=== PATIENT | male | born 1960 | race Caucasian/White ===

== ENCOUNTER 2016-07-20 05:28 | Day surgery (SDC) | payer MEDICAID ==
[2016-07-19 11:16] LABS: BASOPHILS 0.5 % (0.0-2.0); EOSINOPHILS 2.5 % (0-7); HEMATOCRIT 46.2 % (42.0-54.0); HEMOGLOBIN 15.7 g/dL (13.5-17.5); IMMATURE GRANULOCYTES 0.1 % (0-5); LYMPHOCYTES 31.1 % (15-50); MCH 31.7 pg (26.0-34.0); MCV 93.3 fL (80.0-100.0); MEAN PLATELET VOLUME 9.9 fL (7.4-10.4); MONOCYTES 7.1 % (2-11); NEUTROPHILS 58.7 % (40-80); PLATELET COUNT 184 10x3/uL (130-400); RBC 4.95 10x6/uL (4.20-6.10); RDW 12.8 % (11.5-14.5); WBC 7.6 10x3/uL (4.8-10.8)
[2016-07-19 11:21] LABS: CALC OSMOLALITY 271 mosm/kg (275-300); CALCIUM 9.3 mg/dL (8.5-10.1); CARBON DIOXIDE 32.5 mmol/L (21.0-32.0); CHLORIDE - SERUM 103 mmol/L (98-107); GLUCOSE 83 mg/dL (74-106); POTASSIUM - SERUM 4.5 mmol/L (3.5-5.1); SODIUM 137 mmol/L (136-145); UREA NITROGEN 10 mg/dL (7-18); eGFR NON AFRICAN AMERICAN 83 mL/min (90-120)
[~2016-07-20] VITALS: Ht 177.8 cm; Wt 79.8 kg
[~2016-07-20 05:28] MED LIST: ADVAIR 100/501 DISK INH; ASPIRIN EC81 M1 PO; BIOTIN PO; CATAPRES0.2 MG PO; KLONOPIN0.5 MG PO; LEXAPRO20 MG PO; LIPITOR80 MG PO; PLAVIX75 MG PO; PROAIR HFA8.5 GM INH; UREA TOPICAL; VITAMIN B-121000 MCG PO; VITAMIN C1000 MG PO; VITAMIN D31000 UNI2 PO; WELLBUTRIN SR150 MG PO
[2016-07-20 07:35] VITALS: BP 102/68; Ht 177.8 cm; Wt 79.8 kg
--- NOTE | 2016-07-20 08:02 | NUR ---
TONY LEE TO ROOM
[2016-07-20] MEDS ORDERED: HYDROCODONE-APA1 TAB PO (09:46)
--- NOTE | 2016-07-20 13:55 | NUR ---
1210-IV DISCONTINUED, CATHETER INTACT, COTTON BALL AND BANDAID APPLIED. ESCORTED VIA WHEELCHAIR TO PERSONAL CAR, LEFT WITH FRIEND DRIVING.
--- NOTE | 2016-07-25 10:09 | OP ---
PATIENT NAME: SANA BURNO MEDICAL RECORD: [id number] :62 LOCATION:D.OPS ADMISSION DATE: SURGEON: JOSE HASTINGS MD DATE OF OPERATION: 07/20/2016 PREOPERATIVE DIAGNOSES: 1. Umbilical hernia. 2. Hyperlipidemia. 3. Coronary artery disease. 4. Hypertension. 5. Obstructive sleep apnea. 6. Carotid artery stenosis. POSTOPERATIVE DIAGNOSES: 1. Umbilical hernia. 2. Hyperlipidemia. 3. Coronary artery disease. 4. Hypertension. 5. Obstructive sleep apnea. 6. Carotid artery stenosis. PROCEDURE: Umbilical hernia repair without mesh. SURGEON: Jose Hastings MD REPORT OF PROCEDURE: A semicircular incision was made on the inferior aspect of the umbilicus. Electrocautery was used to dissect through the subcutaneous tissues. We bluntly came around the umbilical stalk. The stalk was transected using electrocautery. We then dissected the hernia sac down to the fascial edges. The fascial defect was about 1.2 cm in greatest diameter. We freed up the undersurface of the fascia. The fascia was then closed transversely using interrupted 0 Prolenes times 5. There was good approximation of the tissue. The umbilicus was then tacked down to the fascia using interrupted 3-0 Vicryl. The subcutaneous tissues were reapproximated with interrupted 3-0 Vicryls and then infused with 10 mL of 0.25% Marcaine plain. The skin incision was closed with running subcutaneous 5-0 Monocryl and dressed appropriately. COMPLICATIONS: None. CONDITION: Stable. ANESTHESIA: General endotracheal and local. BLOOD LOSS: Minimal. TRANSINT:[id number] Voice Confirmation ID: [id number] DOCUMENT ID: [id number] OPERATIVE REPORT [id number] SANA BRUNO CHRISTIAN MD at 1009 CC: ROSELYN GONZALEZ DO and CARMELLA DA SILVA MD [id number] DICTATION DATE: 07/20/16 0950 STRUCTURAL BIOLOGIST: 07/20/16 1003 [facility] 07/20/[address] [id number]
== END 2016-07-20 12:10 | disposition home or self-care (01) ==
LOC: D.OPS 05:28 → D.PAN 09:00 → D.OPS 12:10
PROVIDERS: Surgery
DX: K42.9 Umbilical hernia without obstruction or gangrene (principal); E78.5 Hyperlipidemia, unspecified; I25.10 Atherosclerotic heart disease of native coronary artery without angina pectoris; I10 Essential (primary) hypertension; G47.33 Obstructive sleep apnea (adult) (pediatric); I65.29 Occlusion and stenosis of unspecified carotid artery

== ENCOUNTER → 2017-01-09 11:40 | Outpatient (CLI) | payer MEDICAID ==
[2016-07-20 07:35] VITALS: BMI 25.3
[~2017-01-09 11:40] MED LIST changes: +HYDROCODONE-APA1 TAB PO
== END | disposition home or self-care (01) ==
LOC: D.US 11:40
DX: I65.23 Occlusion and stenosis of bilateral carotid arteries (principal)

== ENCOUNTER → 2017-08-08 08:15 | Outpatient (CLI) | payer MEDICAID ==
[2016-07-20 07:35] VITALS: BMI 25.3
== END | disposition home or self-care (01) ==
LOC: D.MRI 08:15
DX: M25.512 Pain in left shoulder (principal)

== ENCOUNTER → 2017-08-10 10:17 | Outpatient (CLI) | payer MEDICAID ==
[2016-07-20 07:35] VITALS: BMI 25.3
== END | disposition home or self-care (01) ==
LOC: D.LABREF 10:17
DX: M19.012 Primary osteoarthritis, left shoulder (principal); Z11.8 Encounter for screening for other infectious and parasitic diseases

== ENCOUNTER 2017-08-28 05:45 | Inpatient (IN) | payer BC ==
[2017-08-27 10:12] LABS: BASOPHILS 0.3 % (0-2); EOSINOPHILS 2.8 % (0-7); HEMATOCRIT 45.3 % (42.0-54.0); HEMOGLOBIN 15.7 g/dL (13.5-17.5); IMMATURE GRANULOCYTES 0.1 % (0-5); LYMPHOCYTES 23.7 % (15-50); MCHC 34.7 g/dL (31.0-37.0); MCV 92.4 fL (80.0-100.0); MEAN PLATELET VOLUME 9.8 fL (7.4-10.4); MONOCYTES 6.2 % (2-11); NEUTROPHILS 66.9 % (40-80); PLATELET COUNT 177 10x3/uL (130-400); RDW 13.5 % (11.5-14.5)
[2017-08-27 10:20] LABS: APPEARANCE CLEAR (CLEAR); BILIRUBIN NEGATIVE (NEGATIVE); COLOR YELLOW (YELLOW); GLUCOSE NEGATIVE (NEGATIVE); INR 0.97 (0.85-1.17); KETONE NEGATIVE (NEGATIVE); NITRITE NEGATIVE (NEGATIVE); PROTEIN NEGATIVE (NEGATIVE); PROTIME 12.5 SECONDS (11.6-15.0); SPECIFIC GRAVITY 1.015 (1.005-1.020); UROBILINOGEN NORMAL (NORMAL)
[2017-08-27 10:21] LABS: APTT 29.7 SECONDS (22.8-39.4); CALC OSMOLALITY 276 mosm/kg (275-300); CALCIUM 8.7 mg/dL (8.5-10.1); CARBON DIOXIDE 25.8 mmol/L (21.0-32.0); CHLORIDE - SERUM 104 mmol/L (98-107); CREATININE - SERUM 0.9 mg/dL (0.6-1.3); GLUCOSE 104 mg/dL (74-106); POTASSIUM - SERUM 3.8 mmol/L (3.5-5.1); SODIUM 140 mmol/L (136-145); UREA NITROGEN 8 mg/dL (7-18); eGFR NON AFRICAN AMERICAN > 90 mL/min (90-120)
[~2017-08-28] VITALS: Ht 177.8 cm; Wt 76.8 kg
--- NOTE | ~2017-08-28 | OP ---
PATIENT NAME: SANA BRUNO MEDICAL RECORD: [id number] :62 LOCATION:D.MS [id number] ADMISSION DATE:08/28/17 SURGEON: MARIA ISABEL ALEXANDER DO DATE OF OPERATION: 08/28/2017 PROCEDURE PERFORMED: Left reverse total shoulder arthroplasty. PREOPERATIVE DIAGNOSIS: Left shoulder rotator cuff arthropathy. POSTOPERATIVE DIAGNOSIS: Left shoulder rotator cuff arthropathy. INDICATIONS: Mr. Bruno is a 57-year-old male who presented to my office a few months ago having an MRI demonstrating complete tear of his rotator cuff, the supraspinatus and infraspinatus. He had had repairs in the past and he had pain for quite some time and limited motion and strength. I had a discussion with him about this and so that on the MRI, it was retracted and looked like irreparable. However, we could try a superior capsular repair, would lock him down for some time or even attempt a reverse total shoulder arthroplasty. He would have a quick recovery. After hearing the risks and benefits of the procedure, he chose to do the reverse total shoulder arthroplasty. The risks of the reverse total shoulder arthroplasty include damage to axillary nerve, loss of function of the left arm, infection, bleeding, need for further surgery, damage to vessels and nerves. After understanding this, he consented to procedure. SURGEON: Maria Isabel Alexander DO COMPLICATIONS: None. BLOOD LOSS: Approximately 100 mL. DESCRIPTION OF PROCEDURE: The patient was given a block in the preoperative area by anesthesia and taken to the operative suite, given 900 mg clindamycin preoperatively. After this, he was laid in supine position, put over on the table and positioned on the beach chair table and given general anesthetic, intubated, and sedated and then the left arm, left shoulder was prepped and draped in sterile fashion. After this was done, a timeout was performed. Everyone was in agreeance with the correct side, site, and the patient and procedure. The incision was then marked down the deltopectoral interval and then the shoulder was covered in [place]. Incision then commenced in the marked location and careful dissection was made down with the Bovie after skin incision was made with a 10 blade coagulating all bleeders. The cephalic vein was taken medially with at one point damaged during the case and was tied off with a 2-0 silk suture. After this was done, the bicep tendon was found as well as the proximal part of the pectoralis major. Proximal part of the pectoralis major was released 4 cm and the biceps tendon was tenodesed there to it. The bicipital groove was then opened up as well as the rotator interval what was left of the supraspinatus tendon without much, the subscap was there and was peeled off with the Bovie after being tagged. Humeral head was then exposed and the intramedullary guide was used to cut in the humerus was made. After the cut was made, the humerus was retracted posteriorly and the glenoid was exposed and cleaned up around the glenoid. All the labrum was removed and the centering pin was put into place. Then, the reamers were used and the baseplate was measured to be 30. Using a 30 screw on the baseplate, a 25 baseplate was used [facility] shoulder and a screw in the 10 o'clock and 5 o'clock positions were put into OPERATIVE REPORT [id number] SANA BRUNO place locking screws in each spot good bite with the center screw as only 2 peripheral screws were put in and then trialing inferior offset glenosphere, this is what we needed for adequate coverage of the glenoid and then the implant was put in place, impacted and locked down getting a good bite. After this was done, the humerus was exposed and broached up to a 5, trialing the implant and seem to be very good position and adequate tautness of the conjoint tendon as well as the deltoid fibers of the deltoid muscle. Once this configuration was done, it was dislocated and removed and the shoulder was irrigated thoroughly and then the final implant was put into place and the shoulder was reduced. Forward flexion was over 100 degrees, abduction over 100 degrees. Internal and external rotation were also adequate and good motion and appropriate tautness of the conjoint tendon as well as the deltoid fibers. Irrigation was then done one final time and the wrist was put in the wound. A drain was put in and taken out superiorly of the deltoid and then the wound was closed first with #1 Vicryl closing the deltopectoral interval loosely and then the skin, 2-0 Vicryl was used in an inverted interrupted pattern and then 4-0 Monocryl was run on the skin in a subcuticular fashion and then Prineo Dermabond was used on the skin itself for closure. Adaptic, 4 x 4s, ABD, and then Medipore tape was used on the incision site. The patient was awakened and taken to recovery in stable condition. COMPLICATIONS: None. TRANSINT:[id number] Voice Confirmation ID: [id number] DOCUMENT ID: [id number] MARIA ISABEL ALEXANDER DO at 0958 CC: [id number] DICTATION DATE: 08/28/17 1543 HISTOPATH TECH: 08/28/17 2042 ADM IN [facility] [address] [place] [address]
[2017-08-28 12:02] VITALS: BP 127/78; BMI 23.7
[2017-08-28 16:55] VITALS: BP 157/89
[2017-08-28 17:03] VITALS: BP 157/89; Ht 177.8 cm; Wt 76.8 kg
[2017-08-28 17:42] VITALS: BP 115/66
[2017-08-28 22:11] VITALS: BP 114/74
[2017-08-29 01:48] VITALS: BP 111/65
[2017-08-29 04:06] LABS: HEMATOCRIT 41.2 % (42.0-54.0); HEMOGLOBIN 14.2 g/dL (13.5-17.5); MCH 31.9 pg (26.0-34.0); MCHC 34.5 g/dL (31.0-37.0); MCV 92.6 fL (80.0-100.0); MEAN PLATELET VOLUME 10.3 fL (7.4-10.4); RBC 4.45 10x6/uL (4.20-6.10); RDW 13.4 % (11.5-14.5)
[2017-08-29 04:17] LABS: WBC 10.3 10x3/uL (4.8-10.8)
[2017-08-29 05:29] VITALS: BP 101/54
[2017-08-29 08:34] VITALS: BP 108/80
[2017-08-29 12:08] VITALS: BP 124/78
[2017-08-29] MEDS ORDERED: OXYCODONE HCL5 MG PO (13:20)
== END 2017-08-29 15:22 | disposition home or self-care (01) | DRG 483 ==
LOC: D.MS 05:45 → D.SDCHOLD 05:45 → D.MS 16:38
PROVIDERS: Orthopaedic Surgery
PROC: 0RRK00Z Replacement of Left Shoulder Joint with Reverse Ball and Socket Synthetic Substitute, Open Approach (ICD-10-PCS; principal; 2017-08-28 13:15)
DX: M75.122 Complete rotator cuff tear or rupture of left shoulder, not specified as traumatic (principal); I10 Essential (primary) hypertension; J45.909 Unspecified asthma, uncomplicated; I25.10 Atherosclerotic heart disease of native coronary artery without angina pectoris; F41.9 Anxiety disorder, unspecified; F17.200 Nicotine dependence, unspecified, uncomplicated

== ENCOUNTER → 2017-12-31 13:20 | Outpatient (CLI) | payer OTHER, MEDICAID ==
[2017-08-28 17:03] VITALS: BMI 24.2
[~2017-12-31 13:20] MED LIST changes: +OXYCODONE HCL5 MG PO
== END | disposition home or self-care (01) ==
LOC: D.US 13:20
DX: I65.23 Occlusion and stenosis of bilateral carotid arteries (principal)

== ENCOUNTER → 2018-06-24 10:48 | Outpatient (CLI) | payer OTHER, MEDICAID ==
[2017-08-28 17:03] VITALS: BMI 24.2
== END | disposition home or self-care (01) ==
LOC: D.LABREF 10:48
DX: M19.011 Primary osteoarthritis, right shoulder (principal); Z11.8 Encounter for screening for other infectious and parasitic diseases

== ENCOUNTER → 2018-06-24 11:58 | Outpatient (CLI) | payer OTHER, MEDICAID ==
[2017-08-28 17:03] VITALS: BMI 24.2
== END | disposition home or self-care (01) ==
LOC: D.LABREF 11:58
DX: M19.011 Primary osteoarthritis, right shoulder (principal)

== ENCOUNTER 2018-07-10 05:10 | Inpatient (IN) | payer MEDICARE, MEDICAID ==
[2018-07-05 08:58] LABS: BASOPHILS 0.5 % (0-2); EOSINOPHILS 2.2 % (0-7); HEMATOCRIT 44.5 % (42.0-54.0); HEMOGLOBIN 15.5 g/dL (13.5-17.5); IMMATURE GRANULOCYTES 0.1 % (0-5); LYMPHOCYTES 26.6 % (15-50); MCH 31.8 pg (26.0-34.0); MCHC 34.8 g/dL (31.0-37.0); MCV 91.4 fL (80.0-100.0); MEAN PLATELET VOLUME 9.6 fL (7.4-10.4); MONOCYTES 7.5 % (2-11); NEUTROPHILS 63.1 % (40-80); PLATELET COUNT 180 10x3/uL (130-400); RBC 4.87 10x6/uL (4.20-6.10); RDW 14.3 % (11.5-14.5); WBC 7.4 10x3/uL (4.8-10.8)
[2018-07-05 08:59] LABS: APPEARANCE CLEAR (CLEAR); BILIRUBIN NEGATIVE (NEGATIVE); COLOR YELLOW (YELLOW); GLUCOSE NEGATIVE (NEGATIVE); KETONE NEGATIVE (NEGATIVE); NITRITE NEGATIVE (NEGATIVE); PROTEIN NEGATIVE (NEGATIVE); SPECIFIC GRAVITY 1.005 (1.005-1.020); UROBILINOGEN NORMAL (NORMAL)
[2018-07-05 09:06] LABS: CALC OSMOLALITY 275 mosm/kg (275-300); CALCIUM 9.1 mg/dL (8.5-10.1); CARBON DIOXIDE 25.5 mmol/L (21.0-32.0); CHLORIDE - SERUM 104 mmol/L (98-107); CREATININE - SERUM 0.8 mg/dL (0.6-1.3); GLUCOSE 106 mg/dL (74-106); POTASSIUM - SERUM 3.9 mmol/L (3.5-5.1); SODIUM 139 mmol/L (136-145); UREA NITROGEN 8 mg/dL (7-18); eGFR NON AFRICAN AMERICAN > 90 mL/min (90-120)
[2018-07-05 09:07] LABS: APTT 28.9 SECONDS (22.8-39.4); INR 0.94 (0.85-1.17); PROTIME 12.1 SECONDS (11.6-15.0)
[~2018-07-10] VITALS: Ht 177.8 cm; Wt 82.3 kg
--- NOTE | ~2018-07-10 | OP ---
PATIENT NAME: SANA BRUNO MEDICAL RECORD: [id number] :62 LOCATION:D.MS [id number] ADMISSION DATE:07/10/18 SURGEON: MARIA ISABEL ALEXANDER DO DATE OF OPERATION: 07/10/2018 PROCEDURE PERFORMED: Right reverse total shoulder arthroplasty. PREOPERATIVE DIAGNOSIS: Right shoulder rotator cuff arthropathy. POSTOPERATIVE DIAGNOSIS: Right shoulder rotator cuff arthropathy. INDICATIONS: Mr. Bruno is a 57-year-old male, who had his left shoulder done in August of this year. Wanted his right shoulder done as well, he had similar problems. He started with not being able to do overhead movements without pain and he had had his rotator cuff repaired on the right side in the past. He knew that it was re-torn, and x-rays were done and demonstrated high riding humeral head and the joint and he had a weak supraspinatus. After talking with him and discussing the options, he wanted to get his reverse done on the right. He is aware of the risks and benefits including damage to the nerves and vessels, infection, bleeding, and need for further surgery. He was okay with those risks and consented to the procedure. SURGEON: Maria Isabel Alexander DO DESCRIPTION OF PROCEDURE: The patient was taken to the operative suite. After given a block by anesthesia in the preoperative area, I was assisted by Donnie Rowley, certified instructor adjunct surgical technician, he was taken to the operative suite and given 900 mg of clindamycin preoperatively. The patient was intubated and sedated. The right shoulder was then prepped and draped in sterile fashion. Time-out was performed. Everyone was in agreement with the correct side, site, patient and procedure. The incision was then marked out in the deltopectoral interval. A #10 blade scalpel was used to cut the skin and then a plasma knife was used to dissect down through the soft tissue. The cephalic vein was taken laterally. Any bleeding was coagulated at that time with the Aquamantys. Then, the clavipectoral fascia was incised. The pec was released, the proximal centimeter of the pec. The bicep tendon was tenodesed to that site on the humerus where the pec had been released. The bicep was then cut proximally and the rotator interval was opened. The subscapularis was tagged with a stitch and then peeled off the lesser tuberosity with the plasma knife. The humeral head was then exposed and a guide was entered into the canal of the humerus. Once the guide was entered in, the head was cut. The head was subluxed behind the glenoid. The glenoid was exposed. The subscap was released off the anterior scapula and the adhesions were with the Nair, and retractors were placed around the glenoid. The glenoid labrum was removed at that time and then a centering pin was used on the glenoid. Then, the glenoid was reamed and drilled for the central peg and the implant was placed, a 25 baseplate standard. Three peripheral screws were then used, two 18s superiorly, both anterior and posterior and then one inferior anterior 14 was used. The glenosphere was then placed, a 36 lateralized, 3 mm lateralized was then placed, impacted and tightened into place. The humeral head was then brought back out of the wound and broaching began. The 4 broach was entered first and seemed to have very good tight fit. Once this was deemed to be a good fit, the tray was put on and to get the best coverage possible, the humeral head and a poly was put in. The shoulder was reduced with somewhat difficulty, being very tight with a 6 poly. This was ranged and found to be very good range of motion and not have any laxity. OPERATIVE REPORT [id number] SANA BRUNO Conjoint tendon was with good tightness as well as the deltoid fibers. This was then dislocated again and the trial was removed. The actual implant, 4 stem was put in, had fit well and the poly was placed and the shoulder was reduced. This ranged very well. The conjoint tendon again was a good one finger tight as well as the deltoid fibers were in appropriate tightness. The wound was then irrigated with Hibiclens and saline and the deltopectoral interval was closed with #1 Vicryl and a drain was placed exiting the shoulder superiorly through the deltoid fibers. This was tied and the deltopectoral interval was then closed with #1 Vicryl in simple interrupted and the skin was closed with 3-0 Vicryl in inverted interrupted fashion, 4-0 Monocryl running on the skin, and Prineo glue was placed on the actual incision and then Telfa, Tegaderm, ABD were placed over the shoulder. The patient was placed in a sling, awakened and taken to recovery in stable condition. Blood loss was approximately 150 mL. Complications were none. TRANSINT:[id number] Voice Confirmation ID: [id number] DOCUMENT ID: [id number] MARIA ISABEL ALEXANDER DO at 1239 CC: [id number] DICTATION DATE: 07/10/18924 COIL CUTTER: 07/10/18 1114 ADM IN [facility] [id number] [place] [address]
[~2018-07-10 05:10] MED LIST changes: +VENTOLIN HFA18 GM INJ
[2018-07-10] MEDS ORDERED: NORCO 10-325 TA1 TAB PO (05:49)
[2018-07-10 05:55] VITALS: BP 124/84; BMI 25.8
[2018-07-10 10:47] VITALS: BP 149/86
[2018-07-10 15:27] VITALS: BP 149/86; Ht 177.8 cm; Wt 82.3 kg
[2018-07-10 21:34] VITALS: BP 167/92
[2018-07-11 00:44] VITALS: BP 194/109
[2018-07-11 04:41] LABS: BASOPHILS 0.1 % (0-2); EOSINOPHILS 0.4 % (0-7); HEMATOCRIT 42.6 % (42.0-54.0); HEMOGLOBIN 15.2 g/dL (13.5-17.5); IMMATURE GRANULOCYTES 0.1 % (0-5); LYMPHOCYTES 14.1 % (15-50); MCH 31.9 pg (26.0-34.0); MCHC 35.7 g/dL (31.0-37.0); MCV 89.5 fL (80.0-100.0); MEAN PLATELET VOLUME 10.2 fL (7.4-10.4); MONOCYTES 9.3 % (2-11); PLATELET COUNT 199 10x3/uL (130-400); RBC 4.76 10x6/uL (4.20-6.10); RDW 13.9 % (11.5-14.5); WBC 14.1 10x3/uL (4.8-10.8)
[2018-07-11 05:06] LABS: ALBUMIN 3.4 g/dL (3.4-5.0); ALKALINE PHOSPHATASE 82 U/L (46-116); ALT (SGPT) 37 U/L (10-68); CALC OSMOLALITY 275 mosm/kg (275-300); CALCIUM 8.8 mg/dL (8.5-10.1); CARBON DIOXIDE 22.1 mmol/L (21.0-32.0); CHLORIDE - SERUM 103 mmol/L (98-107); CREATININE - SERUM 0.8 mg/dL (0.6-1.3); GLUCOSE 133 mg/dL (74-106); POTASSIUM - SERUM 3.1 mmol/L (3.5-5.1); PROTEIN - SERUM 7.2 g/dL (6.4-8.2); SODIUM 138 mmol/L (136-145); UREA NITROGEN 8 mg/dL (7-18); eGFR NON AFRICAN AMERICAN > 90 mL/min (90-120)
[2018-07-11 05:10] VITALS: BP 149/98
[2018-07-11 08:48] VITALS: BP 167/79
[2018-07-11 12:45] VITALS: BP 157/91
[2018-07-11 16:50] VITALS: BP 145/77
[2018-07-11] MEDS ORDERED: KEFLEX500 MG PO (17:23)
[2018-07-11] MEDS ORDERED: OXYCODONE HCL5 M1 PO (17:23)
== END 2018-07-11 19:00 | disposition home or self-care (01) | DRG 483 ==
LOC: D.MS 05:10 → D.SDCHOLD 05:10 → D.MS 10:09
PROVIDERS: Emergency Medicine; Orthopaedic Surgery
PROC: 0RRJ00Z Replacement of Right Shoulder Joint with Reverse Ball and Socket Synthetic Substitute, Open Approach (ICD-10-PCS; principal; 2018-07-10 07:30)
DX: M12.811 Other specific arthropathies, not elsewhere classified, right shoulder (principal); F17.213 Nicotine dependence, cigarettes, with withdrawal; D62 Acute posthemorrhagic anemia; I10 Essential (primary) hypertension; I25.10 Atherosclerotic heart disease of native coronary artery without angina pectoris; E78.5 Hyperlipidemia, unspecified; F32.9 Major depressive disorder, single episode, unspecified; I73.9 Peripheral vascular disease, unspecified; F41.9 Anxiety disorder, unspecified; G47.33 Obstructive sleep apnea (adult) (pediatric)

== ENCOUNTER → 2018-12-02 13:30 | Outpatient (CLI) | payer MEDICARE, MEDICAID ==
[2018-07-10 15:27] VITALS: BMI 26.0
[~2018-12-02 13:30] MED LIST changes: +KEFLEX500 MG PO; +NORCO 10-325 TA1 TAB PO; +OXYCODONE HCL5 M1 PO
[2018-12-02 19:27] LABS: MACROPHAGES BF 76 %; MESOTHELIALS BF 1 %; NEUT - BF 12 %
== END | disposition home or self-care (01) ==
LOC: D.LABREF 13:30
PROVIDERS: ATTEND Orthopaedic Surgery
DX: M25.561 Pain in right knee (principal)

== ENCOUNTER → 2019-05-13 09:21 | Outpatient (CLI) | payer MEDICARE ==
[2018-07-10 15:27] VITALS: BMI 26.0
== END | disposition home or self-care (01) ==
LOC: D.US 09:21
PROVIDERS: ATTEND Internal Medicine Cardiovascular Disease
DX: I65.23 Occlusion and stenosis of bilateral carotid arteries (principal)

== ENCOUNTER → 2020-11-04 17:34 | Outpatient (CLI) | payer MEDICARE ==
[2018-07-10 15:27] VITALS: BMI 26.0
[2020-11-04 18:23] LABS: PROTEIN - BODY FLUID 5.7 G/DL
[2020-11-04 18:26] LABS: MACROPHAGES BF 13 %; NEUT - BF 56 %
== END | disposition home or self-care (01) ==
LOC: D.LABREF 17:34
PROVIDERS: ATTEND Orthopaedic Surgery
DX: M25.562 Pain in left knee (principal)